=== PATIENT | female | born 2000 | race African-American/Black ===

== ENCOUNTER 2021-09-06 10:58 | Emergency (ER) | payer OTHER ==
[~2021-09-06] VITALS: Ht 152.4 cm; Wt 97.3 kg
[2021-09-06 10:59] VITALS: BP 165/96
[2021-09-06] MEDS ORDERED: TRAZ-252 PO (11:07)
[2021-09-06] MEDS ORDERED: KETOROLAC 30 MG/ML 1ML VIAL IM ONE (11:25)
[2021-09-06] MEDS ORDERED: KETOROLAC TROMETHAMINE 10 MG TAB PO ONE (11:30)
== END 2021-09-06 12:10 | disposition home or self-care (01) ==
LOC: M ED 10:58
DX: S93.402A Sprain of unspecified ligament of left ankle, initial encounter (principal); W00.9XXA Unspecified fall due to ice and snow, initial encounter; Y92.009 Unspecified place in unspecified non-institutional (private) residence as the place of occurrence of the external cause; Y93.9 Activity, unspecified; Y99.9 Unspecified external cause status

== ENCOUNTER 2022-12-27 22:32 | Emergency (ER) | payer OTHER ==
[~2022-12-27] VITALS: Ht 162.6 cm; Wt 72.3 kg
[~2022-12-27 22:32] MED LIST: TRAZ-252 PO
[2022-12-27 22:35] VITALS: BP 152/91; TEMP 99.7; O2SAT 100
== END 2022-12-28 03:06 | disposition left against medical advice (07) ==
LOC: M ED 22:32
DX: Z53.21 Procedure and treatment not carried out due to patient leaving prior to being seen by health care provider (principal)